=== PATIENT | male | born 1965 | race American Indian/Alaskan Native ===

== ENCOUNTER 2017-07-03 09:00 | Day surgery (SDC) | payer OTHER ==
[2017-07-03] MEDS ORDERED: NACL BACTERIOSTATIC INFILTRATI ONE (10:58)
[2017-07-03] MEDS ORDERED: ANCEF/STERILE WATER 2 GM/20 ML IV NR (11:00)
--- NOTE | 2017-07-03 11:15 | Anesthesia Day of Surgery ---
Anesthesia Day of Surgery - Day of Surgery Patient Examined: Yes Patient H&P Reviewed: Yes Patient is NPO: Yes Beta Blockers: No Cardiac Clearance: No Pulmonary Clearance: No
[2017-07-03] MEDS ORDERED: DILAUDID IV PRN (11:19)
[2017-07-03] MEDS ORDERED: SUBLIMAZE ONE (11:47)
[2017-07-03] MEDS ORDERED: XYLOCAINE MPF 2% ONE (11:47)
[2017-07-03] MEDS ORDERED: DIPRIVAN 10 MG/ML IV ONE (11:48)
[2017-07-03] MEDS ORDERED: NACL 0.9% 1000 ML 1,000 ML IV SCH (12:00)
[2017-07-03] MEDS ORDERED: ZOFRAN ONE (12:33)
--- NOTE | 2017-07-03 12:36 | Short Stay Summary ---
Short Stay Documentation Date of service: 07/03/17 - History H&P: obtained from office - Allergies and Medications Current Medications: Allergies No Known Allergies Allergy (Verified 07/01/17 16:22) Home Medications Medication Instructions Recorded Confirmed Last Taken Type AtorvaSTATin [Lipitor] 20 mg PO QHS 07/01/17 07/01/17 07/02/17 History Losartan [Cozaar] 50 mg PO QHS 07/01/17 07/01/17 07/02/17 History Ranitidine HCl [Zantac 150 MG TAB] 150 mg PO DAILY 07/01/17 07/03/17 07/02/17 History Active Medications Cefazolin Sodium (Ancef/Sterile Water 2 Gm/20 Ml) 2 gm IV PREOP NR Stop: 07/03/17 13:00 Hydromorphone HCl (Dilaudid) 0.5 mg IV Q10MIN PRN PRN Reason: Pain , Severe (7-10) Stop: 07/03/17 14:00 Sodium Chloride (Nacl 0.9% 1000 Ml) 1,000 mls @ 75 mls/hr IV DIRECT NARDA Last Admin: 07/03/17 11:22 Dose: 75 mls/hr - Brief post op/procedure progress note Date of procedure: 07/03/17 Pre-op diagnosis: left renal stone----10mm Post-op diagnosis: same Procedure: eswl Anesthesia: WANDER Surgeon: JONATHAN OAKES Estimated blood loss: minimal Condition: stable - Hospital course Hospital course: percocet & post op info on chart - Disposition Condition at discharge: Stable Disposition: DC-01 TO HOME OR SELFCARE Short Stay Discharge Plan Follow up with: JENNA LIM MD [Primary Care Provider] - 7 Days
--- NOTE | 2017-07-03 13:10 | Operative Report ---
PREOPERATIVE DIAGNOSIS: Left renal stone (10 mm). POSTOPERATIVE DIAGNOSIS: Left renal stone (10 mm). PROCEDURE: Extracorporal shock wave lithotripsy. SURGEON: Ilan Rodriguez MD ANESTHESIA: General. ESTIMATED BLOOD LOSS: Minimal. FLUIDS: Crystalloid. COMPLICATIONS: No complications. INDICATIONS: This patient is a 51-year-old male seen by Dr. Keene in the office. CT revealed a 10 mm stone. Discussed options, he agreed to proceed with surgical intervention. DESCRIPTION OF PROCEDURE: The patient was taken to the operative suite, placed in a supine position. After adequate general anesthesia, stone was localized using 2 planes using fluoroscopy. Extracorporal shock wave lithotripsy was administered in maximum kV of 5 and 2500 shocks. Adequate fragmentation could be appreciated. Renal pause after 200 shocks. The patient tolerated the procedure well. He was extubated and taken to the recovery room. He will go home on Percocet and follow up in the office. JOB# [id number] COREEN/COLE
[2017-07-03 14:22] VITALS: BP 124/83
--- NOTE | 2017-07-03 17:35 | Post Anesthesia Evaluation ---
- Post Anesthesia Evaluation Patient Participated: Yes Airway Patent: Yes Stable Respiratory Function: Yes Nausea/Vomiting: No Temp > 96.8F: Yes Pain Manageable: Yes Adequeate Hydration: Yes Anesthesia Complications: No
== END 2017-07-03 14:15 | disposition home or self-care (01) ==
LOC: OR 09:00
PROVIDERS: ATTEND Urology
DX: N20.0 Calculus of kidney (principal); I10 Essential (primary) hypertension; K21.9 Gastro-esophageal reflux disease without esophagitis; E78.00 Pure hypercholesterolemia, unspecified; G47.33 Obstructive sleep apnea (adult) (pediatric); F17.200 Nicotine dependence, unspecified, uncomplicated
CPT/HCPCS: 50590; J0690; J2405; J2704; J3010; J7030